=== PATIENT | female | born 1935 | race Caucasian/White ===

== ENCOUNTER → 2018-01-16 13:02 | Outpatient (CLI) | payer MEDICARE, SELFPAY ==
[2018-01-16 13:59] LABS: Absolute Lymphocyte Count 1.53 X10^3/ul (0.83-4.51); Absolute Neutrophil Count 2.9 X10^3/uL (2.0-7.7); Basophil# 0.06 X10^3/uL; Basophil% 1.2 % (0-1); Eosinophil# 0.24 X10^3/uL; Eosinophils% 4.7 % (0-5); Hematocrit 40.9 % (37-47); Hemoglobin 12.8 g/dl (12.0-15.0); Lymphocyte # 1.53 X10^3/ul (4.0); Lymphocyte % 30.2 % (19-41); Mean Corp Hgb Conc 31.3 g/gl (32-36); Mean Corpuscular Hgb 29.9 pg (27.0-32.0); Mean Corpuscular Volume 95.6 fL (81-99); Mean Platelet Vol. 10.4 fl (6.2-12.0); Monocyte# 0.38 X10^3/uL; Monocyte% 7.5 % (0-10); Neutrophil # 2.86 X10^3/uL (2.7-7.7); Neutrophil % 56.4 % (47-70); Platelet Count 297 K/mm3 (150-450); RBC Distribution Width CV 12.8 % (11.6-14.6); RBC Distribution Width SD 44.2 fl (35.1-43.9); Red Blood Count 4.28 M/mm3 (4.2-5.4); White Blood Count 5.1 K/mm3 (4.4-11.0)
[2018-01-16 14:00] LABS: POSITIVE COUNT NO; POSITIVE DIFFERENTIAL NO; POSITIVE MORPHOLOGY NO
[2018-01-16 14:13] LABS: Anion Gap 7 (5-15); BUN 15 mg/dL (7-18); BUN/Creat Ratio 13.3 RATIO (10-20); Calcium,Total 8.8 mg/dL (8.5-10.1); Chloride 106 mmol/L (98-107); Cholesterol 214 mg/dL (200); Creatinine, Serum 1.13 mg/dL (0.55-1.02); EST Glomerular Filtration Rate 49 mL/min (>60); Est Glom Filt Rate - Afr Amer 59 mL/min (>60); Glucose 94 mg/dL (74-106); High Density Lipoprotein 73 mg/dL; Potassium 3.8 mmol/L (3.5-5.1); Sodium Level 140 mmol/L (136-145); Triglycerides 104 mg/dL; Very Low Density Lipoprotein 21 mg/dL (5-40)
== END ==
PROVIDERS: Family Provider Family Medicine; PCP Family Medicine; Visit Provider Family Medicine
DX: E78.00 Pure hypercholesterolemia, unspecified (principal); R53.83 Other fatigue
CPT/HCPCS: 36415; 80048; 80061; 85025

== ENCOUNTER → 2018-01-19 14:41 | Outpatient (CLI) | payer MEDICARE, SELFPAY ==
[2018-01-19 17:54] LABS: Vitamin B12 417 pg/mL (211-911); Vitamin D,25 Hydroxy 48.5 ng/mL (29.95-100.01)
[2018-01-19 18:01] LABS: Erythrocyte Sedimentation Rate 6 mm/hr (0-30)
[2018-01-19 18:11] LABS: CPK Total, Creatine Kinase 127 U/L (26-192)
== END ==
PROVIDERS: Family Provider Family Medicine; PCP Family Medicine; Visit Provider Family Medicine
DX: M79.1 Myalgia (principal); R53.83 Other fatigue
CPT/HCPCS: 36415; 82306; 82550; 82607; 84443; 85652

== ENCOUNTER → 2018-03-06 12:57 | Outpatient (CLI) | payer MEDICARE, SELFPAY ==
[2018-03-06 13:43] LABS: Absolute Lymphocyte Count 1.52 X10^3/ul (0.83-4.51); Absolute Neutrophil Count 2.7 X10^3/uL (2.0-7.7); Basophil# 0.05 X10^3/uL; Eosinophils% 4.1 % (0-5); Hematocrit 36.8 % (37-47); Hemoglobin 11.3 g/dl (12.0-15.0); Lymphocyte # 1.52 X10^3/ul (4.0); Lymphocyte % 31.1 % (19-41); Mean Corp Hgb Conc 30.7 g/gl (32-36); Mean Corpuscular Hgb 29.9 pg (27.0-32.0); Mean Corpuscular Volume 97.4 fL (81-99); Monocyte# 0.42 X10^3/uL; Monocyte% 8.6 % (0-10); Neutrophil % 55.2 % (47-70); Platelet Count 324 K/mm3 (150-450); RBC Distribution Width CV 12.6 % (11.6-14.6); RBC Distribution Width SD 44.2 fl (35.1-43.9); Red Blood Count 3.78 M/mm3 (4.2-5.4); White Blood Count 4.9 K/mm3 (4.4-11.0)
[2018-03-06 13:44] LABS: POSITIVE COUNT NO; POSITIVE DIFFERENTIAL NO; POSITIVE MORPHOLOGY NO
[2018-03-07 10:25] LABS: Vitamin B12 384 pg/mL (211-911)
[2018-03-07 22:11] LABS: Endomysial Antibody IgA Negative (Negative)
[2018-03-08 10:45] LABS: Deamidated Gliadin IgA 1 units (0-19); Deamidated Gliadin IgG 2 units (0-19); Immunoglobulin A 310 mg/dL (64-422); t-Transglutaminase IgA <2 U/mL (0-3)
== END ==
PROVIDERS: Family Provider Family Medicine; PCP Family Medicine; Visit Provider Family Medicine
DX: R53.83 Other fatigue (principal)
CPT/HCPCS: 36415; 82533; 82607; 82784; 83516; 85025; 86255

== ENCOUNTER → 2018-05-07 12:10 | Outpatient (CLI) | payer MEDICARE, SELFPAY ==
[2018-05-07 12:56] LABS: CREATININE FINGERSTICK 0.8 mg/dL (0.55-1.02); EGFR FINGERSTICK > 60.0000 mL/min (>60)
== END ==
PROVIDERS: Family Provider Family Medicine; PCP Family Medicine; Visit Provider Family Medicine
DX: R51 Headache (principal)
CPT/HCPCS: 70553; A9585

== ENCOUNTER → 2018-05-22 15:38 | Outpatient (CLI) | payer MEDICARE, SELFPAY ==
[2018-05-22 18:14] LABS: Amphetamine Urine VISTA NEGATIVE (<1000 ng/mL); Barbiturate Urine VISTA NEGATIVE (< 200 ng/mL); Benzodiazepine Urine VISTA NEGATIVE (< 200 ng/mL); Cocaine Urine VISTA NEGATIVE (< 300 ng/mL); Ecstacy Urine VISTA NEGATIVE (< 500 ng/mL); Methadone Urine VISTA NEGATIVE (< 300 ng/mL); PCP Urine VISTA NEGATIVE (< 25 ng/mL); THC Urine VISTA NEGATIVE (< 50 ng/mL); Vista UDS pH Range 5
== END ==
PROVIDERS: Family Provider Family Medicine; PCP Family Medicine; Visit Provider Anesthesiology Pain Medicine
DX: F11.20 Opioid dependence, uncomplicated (principal)
CPT/HCPCS: 80307

== ENCOUNTER → 2019-01-01 | Outpatient (CLI) | payer MEDICARE, SELFPAY ==
[2019-01-01 16:10] LABS: Amphetamine Urine VISTA NEGATIVE (<1000 ng/mL); Barbiturate Urine VISTA NEGATIVE (< 200 ng/mL); Benzodiazepine Urine VISTA NEGATIVE (< 200 ng/mL); Cocaine Urine VISTA NEGATIVE (< 300 ng/mL); Ecstacy Urine VISTA NEGATIVE (< 500 ng/mL); Methadone Urine VISTA NEGATIVE (< 300 ng/mL); PCP Urine VISTA NEGATIVE (< 25 ng/mL); THC Urine VISTA NEGATIVE (< 50 ng/mL); Vista UDS pH Range 7
== END | disposition home or self-care (01) ==
LOC: LAB 14:28
PROVIDERS: Family Provider Family Medicine; PCP Family Medicine; Referring Provider Anesthesiology Pain Medicine; Visit Provider Anesthesiology Pain Medicine
DX: F11.20 Opioid dependence, uncomplicated (principal)
CPT/HCPCS: 80307

== ENCOUNTER → 2023-12-29 | Outpatient (CLI) | payer MEDICARE, SELFPAY ==
--- NOTE | 2023-12-29 14:34 | RAD_ITS ---
STUDY: X-RAY - ABDOMEN/PELVIS REASON FOR EXAM: Female, 88 years old. abd pain TECHNIQUE: AP supine and upright views of the abdomen and pelvis. COMPARISON: None. FINDINGS: Normal visualized lung bases. There is an unremarkable bowel gas pattern. There is no demonstrated free abdominal air. The visualized liver, spleen and kidneys are grossly normal in size and morphology. Normal soft tissue structures. Mild levoscoliosis lumbar spine with degenerative disc disease. RAD/Abd Inc Decub and/or Erect IMPRESSION: Normal x-ray examination of the abdomen and pelvis. Electronically Signed: Corbin Euceda MD at 17:31 EDT ,
[2023-12-29 18:24] LABS: CRP < 2.90 mg/L (0.0-3.0)
[2024-01-01 15:08] LABS: Endomysial Antibody IgA Negative (Negative); Immunoglobulin A 392 mg/dL (64-422); t-Transglutaminase IgA <2 U/mL (0-3)
== END | disposition home or self-care (01) ==
LOC: MTLAB 14:29
PROVIDERS: PCP Registered Nurse; Referring Provider Internal Medicine Gastroenterology; Visit Provider Internal Medicine Gastroenterology
DX: R19.7 Diarrhea, unspecified (principal); R10.9 Unspecified abdominal pain
CPT/HCPCS: 36415; 74019; 82784; 83516; 86140; 86255

== ENCOUNTER → 2025-02-11 | Outpatient (CLI) | payer MEDICARE, SELFPAY ==
--- NOTE | 2025-02-11 09:30 | PET_ITS ---
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 TECHNIQUE: Following the intravenous administration of radionucleotide, image acquisition on a dedicated PET/CT unit was performed at one hour post injection. A preliminary CT study encompassing the Skull base, neck, chest, abdomen, pelvis, and proximal thighs was performed for purposes of attenuation correction and anatomic localization. The proximal thighs were also included. The patient's blood glucose level was 98 mg/dL (allowable range: 50-180 mg/dL). RADIOPHARMACEUTICAL: 14.28 mCi 18F-FDG (Fluorodeoxyglucose F18) IV was injected into he patient. RADIATION DOSE SUMMARY: Effective Dose: Approximately 7 mSv for a standard whole-body PET scan Organ Doses: Varies by organ, with higher doses typically to the bladder, liver, and brain COMPARISON: COMPARISON FROM CT, PET OR OTHER PERTINENT EXAMS: None provided. FINDINGS: Physiologic uptake: There may be expected metabolic uptake within the brain, tongue and floor of the mouth and larynx/vocal cords, heart, car (many normal individuals have hilar uptake in less than 3 nodes with mildly avid hilar nodes less than 2.7 SUV), liver and spleen, system, and GI tract and symmetric muscle uptake. FDG AVID AND NON-AVID LESIONS. Reported avid SUV values (g/mL*) are maximum SUV. Metallic artifact from dental work is seen. NECK: Partial osseous destructive change of the left mandible is noted. SUV max is approximately 16.1. Marked abnormal uptake also extends into the left mild mouth. SUV max is approximately 21.1 Hypermetabolic activity is also seen at the subjacent left submandibular gland, with SUV max of 3.2 At the level of C3, a left cervical hypermetabolic lymph node is seen, with SUV max of 10.1 Hypermetabolic activity seen of the bilateral tongue base, with SUV max in the right of 5.5, and SUV max of the left of 5.5, as well. CHEST: Chest wall- There are no significant chest wall abnormalities. Axilla- There are no significant axillary abnormalities. Lung parenchyma- There are no significant lung parenchyma abnormalities. Mediastinum- There are no significant hilar or mediastinal adenopathy. Pleura- There are no significant pleural abnormalities. ABDOMEN: Moderate aortic calcification; no evidence of abdominal aortic aneurysm. Stomach- No significant abnormalities. Liver- No significant abnormalities. Spleen- No significant abnormalities. Pancrease- No significant abnormalities. Kidneys- No significant abnormalities. Bowel- Normal bowel activity. Spine- No significant abnormalities. PELVIS: Moderate to moderately severe sigmoid diverticulosis. Bowel- Normal physiologic bowel activity is identified. Masses- There are no pelvic masses. Bones- Prominent degenerative changes are seen throughout the spine. With the use of bone window settings, there are no osteolytic or osteoblastic lesions. There are no FDG avid lesions within the visualized portion of the axial skeleton. PET/PET/CT Tumor Base -Thigh Init IMPRESSION: FDG avid- Extensive hypermetabolic left mouth mass, including partial destruction of the left mandible, and also extending to the left submandibular gland, highly concerning for malignancy. Additionally, a hyperme tabolic left cervical lymph node is seen. Milder hypermetabolic activity of the bilateral base of the tongue is also seen . Other: 1. Moderate to moderately severe sigmoid diverticulosis. 2. Prominent degenerative changes throughout the spine. Please note the low-dose CT scan was performed to facilitate PET image reconstr uction and anatomic localization and does not replace a diagnostic CT. Any diagnostic CT requested and performed at the time of the PET will be reported separately. Reading Location: [id number]
== END | disposition home or self-care (01) ==
PROVIDERS: PCP Registered Nurse; Referring Provider Internal Medicine Hematology & Oncology; Visit Provider Internal Medicine Hematology & Oncology
DX: C76.0 Malignant neoplasm of head, face and neck (principal); R93.0 Abnormal findings on diagnostic imaging of skull and head, not elsewhere classified
CPT/HCPCS: 78815; A9552

== ENCOUNTER 2025-03-12 15:06 | Emergency (ER) | payer MEDICARE, SELFPAY ==
[2025-03-12 15:07] VITALS: BP 142/63; PULSE 57; RESP 18; TEMP 36.7; O2SAT 98; BMI 27.8
--- NOTE | 2025-03-12 15:53 | EDS_ITS ---
HPI History of Present Illness Chief Complaint: Dizziness [facility] Medical History (Updated 03/12/25 @ 15:42 by Jodee Lee) Cancer of jaw Home Medications ?Medication ?Instructions ?Recorded ?Last Taken ?Type aspirin 81 mg tablet 81 mg PO DAILY 03/12/25 07/11/05 History biotin 10,000 mcg capsule 10,000 mcg PO DAILY 03/12/25 03/12/25 History cetirizine 10 mg tablet 10 mg PO DAILY PRN allergies 03/12/25 Unknown History docusate sodium 100 mg capsule 100 mg PO DAILY PRN con stipation 03/12/25 Unknown History ergocalciferol (vitamin D2) 1,250 1,250 mcg PO .COMPLE X 03/12/25 Unknown History mcg (50,000 unit) capsule fentanyl 37.5 mcg/hour transdermal 1 patch topical Q3D 03/12/25 03/11/25 History patch latanoprost 0.005 % eye drops 1 drp EACH EYE DAILY 11/0503/12/25 History (Xalatan) multivitamin (Daily Multi-Vitamin 1 tab PO DAILY 03/1203/12/25 History tablet) oxycodone-acetaminophen 10 mg-325 1 tab PO Q8H PRN cyndy n 03/12/25 Unknown History mg tablet polyethylene glycol 3350 17 17 g PO DAILY PRN constipa tion 03/12/25 Unknown History gram/dose oral powder (ClearLax) pregabalin 150 mg capsule 150 mg PO BID 03/12/2503/12 History timolol maleate 0.5 % eye drops 1 drp ophthalmic (eye) BID 03/12/25 03/12/25 History Allergy/AdvReac Type Severity Reaction Status Date / Time diazepam (From Valium) Allergy slows me Verified 03/12/25 15:09 down Social History (Updated 12/04/17 @ 14:01 by Corky Hughes DO) Smoking Status: Former smoker EXAM Physical Exam Const Vital Signs: 03/12/25 15:07 03/12/25 17:07 03/12/25 19:00 Temperature 98.1 F Temperature Source Oral Pulse Rate 57 L 49 L 53 L Respiratory Rate 18 14 14 Blood Pressure 142/63 H 119/52 L 119/90 H Blood Pressure Mean 89 74 99 Pulse Ox 98 95 95 Oxygen Delivery Method Room Air Room Air Room Air MDM MDM MDM Narrative Medical decision making narrative: HISTORY OF PRESENT ILLNESS: Chief complaint: Dizziness, bradycardia 89-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 Per family patient was 54. She states she has been more diffusely weak, dizzy and tired. No she recently started radiati on therapy for jaw cancer. Notes she is not taking as much p.o. Denies vomiting or diarrhea. Denies increased urination. Denies chest pain or shortness of breath. Denies leg swelling. Denies fever cough or chills. Denies focal weakness, slurred speech, facial drooping, loss of vision. REVIEW OF SYSTEMS: Pertinent positives: Dizziness, low heart rate Pertinent negatives: Chest pain, shortness of breath PHYSICAL EXAM: Nursing triage notes reviewed, Vital signs reviewed Constitutional: please see [facility] HENT: MMM Eyes: Pupils equal round and reactive to light, Extraocular muscles intact Neck: No stridor, no JVD, full neck ROM Lungs: Clear to auscultation, No wheezing or rales. No increased work of breathing, no conversational dyspnea, no accessory muscle use, no nasal flaring. No respiratory distress noted Heart: Regular rate and rhythm, No murmurs, No rubs and No gallops, 2+ distal pulses (radial, femoral, posterior tibial) in all extremities Abdomen: Soft, there is no tenderness, rigidity, rebound or guarding, no obvious peritoneal signs, no palpable pulsatile abdominal masses, no auscultated abdominal bruit : No CVAT Extremities: No edema Neuro: Alert and oriented x3, neuro exam at baseline, cranial nerves II through XII are intact. No pain with extraocular muscle movement. There is negative test of skew. 5 of 5 strength in upper and lower extremities in flexion extension. Intact sensation to light touch in upper and lower extremity dermatomes. No truncal or extremity ataxia. No dysdiadochokinesia. Normal gait. 2+ reflexes in upper and lower extremities. No meningeal signs. Negative Babinski. NIH of 0. Skin: No rash or lesions noted MEDICAL DECISION MAKING: Chief Complaint: please see HPI External records reviewed: Reviewed prior imaging studies Factors affecting care: Jaw cancer currently on radiation therapy Social determinants of health: none History obtained from others: Daughter Consults: Cardiology (Dr. Vidal) [facility] Narrative: The patient was initially hemodynamically stable, heart rate initially 57, otherwise she is nontoxic-appearing saturating 98% room air breathing 18 times a minute I considered the following differential diagnosis: Heart Block, arrhythmia, anemia, electro disturbance, ACS, heart failure, ICH, intracranial mass I obtained a broad lab and imaging workup to further determine if the patient was suffering from a life-threatening etiology. ALL IMAGES (IF OBTAINED) HAVE BEEN PERSONALLY REVIEWED AND INTERPRETED BY MYSELF. Initial EKG sinus bradycardia rate 52, no sign of high degree block or dropped beats, normal IA interval (192), no obvious STEMI noted. No significant change from prior EKG noted from November 2016. At this time heart rate 59. IA interval is 192. CT scan of the brain shows no evidence of obvious mass or bleed I have personally reviewed the patient's chest x-ray. Chest x-ray is unremarkable for pulmonary edema, pneumothorax, pneumonia or focal cardiopulmonary abnormality. CBC with no leukocytosis, baseline chronic anemia, no thrombocytopenia Urinalysis shows no evidence of urinary inflammation suggestive of UTI BMP with hyper kalemia however it is hemolyzed likely normal given potassium was 5.2 the lab reference range of 3.3-5.1. Will not treat as there are no EKG changes. There is no LANG LFTs show no evidence of hepatobiliary pathology. Initial troponin indeterminate will wait for delta troponin. Delta troponin 41. (This technically rules in by sensitive troponin protocol) Lipase is wnl indicating no pancreatic inflammation. The synthesis of the patient's history, physical exam, labs images suggest no acute life or limb threating etiology. While the patient was bradycardic she had a sinus bradycardia. No sign of high degree block. Her vitals remained stable including blood pressures remained initially elevated at 142/63 and back into normal range at 119/90. Discussed the high sensitive troponins ruling in from 41-30 which is a delta of 11 which is greater than 6. Discussed with cardiology Dr. Vidal who noted the patient denied chest pain is no EKG changes suspicious for ischemia that should be appropriate for outpatient follow-up despite ruling in by high-sensitivity protocol. Patient was discharged with strict return precautions and follow-up instructions with cardiology The patient and/or family, caregivers express understanding. The patient and/or family, caregivers agrees with the plan. Shared decision making: I will have a discussion with the patient and or visitors regarding risk/benefits of further testing or admission. They will be made aware of of the risk/benefits inherent in this decision they will be given the opportunity to voice understanding. Total critical care time today provided was at least 0 minutes. This excludes separately billable procedures. Critical care time (if documented) is secondary to the patient having high probability of clinically significant/life threatening deterioration in the patient's condition which required my urgent intervention. Impression: 1. Dizziness 2. Bradycardia Dispo: Discharge home This note was generated with [employer] dictation software. It may contain incorrect words, spelling, and punctuation that were not noted in review of the chart prior to signing. Lab Data Labs: Laboratory Results - last 24 hr 03/12/25 03/12/25 03/12/25 16:12 18:26 18:38 WBC 6.9 RBC 3.46 L Hgb 10.6 L Hct 34.0 L MCV 98.3 MCH 30.6 MCHC 31.2 L RDW Std Deviation 42.5 RDW Coeff of Domi 11.8 Plt Count 217 MPV 11.5 Immature Gran % (Auto) 0.100 Neut % (Auto) 64.9 Lymph % (Auto) 19.1 [place] % (Auto) 9.1 Eos % (Auto) 6.1 H Baso % (Auto) 0.7 Absolute Neuts (auto) 4.5 Absolute Lymphs (auto) 1.32 Nucleated RBC % 0 Sodium 138 Potassium 5.2 H Chloride 103 Carbon Dioxide 27.2 Anion Gap 8 BUN 25 H Creatinine 1.29 H Estim Creat Clear Calc 24.82 L Est GFR (MDRD) Non-Af 40 L BUN/Creatinine Ratio 19.3 Glucose 95 Calcium 9.3 Total Bilirubin 0.27 AST 34 H ALT 20 Alkaline Phosphatase 99 Troponin T High Sens 40 H Troponin T Hi Sens 2 Hr 31 H Total Protein 6.5 Albumin 3.6 Globulin 2.9 Albumin/Globulin Ratio 1.2 Lipase 45 Urine Color Yellow Urine Clarity Clear Urine pH 6.0 Ur Specific [place] 1.015 Urine Protein 15 H Urine Glucose (UA) Normal Urine Ketones Negative Urine Occult Blood Negative Urine Nitrite Negative Urine Bilirubin Negative Urine Urobilinogen Normal Ur Leukocyte Esterase Negative Urine RBC 0-5 SEEN Urine WBC 0-5 SEEN Ur Squamous Epith Cells 0-5 SEEN Urine Bacteria 0 SEEN Urine Mucus 0 SEEN Radiography Diagnostic Testing: Clinical Impression(s) from Imaging Studies Brain CT 03/12/25 16:27 IMPRESSION: No acute intracranial process. Moderate chronic microvascular ischemic changes. No definite mass effect. Please note that parenchymal lesions are difficult to exclude on noncontrast CT brain; consider further evaluation with CT brain with IV contrast or MR for further evaluation. Asymmetrically dense right petrous segment of temporal bone, seen on prior MRIs, which may be anatomic or may reflect neoplastic process. Reading Location: [facility] Chest X-Ray 03/12/25 16:31 IMPRESSION: Generalized osteopenia is seen. The cardiomediastinal silhouette is within the expected range for age and rachel hnique. Although lungs are hypoinflated, no pulmonary edema is clearly identified. No focal infiltrate is seen. No pleural effusion or pneumothorax is evident. No evidence of acute cardiopulmonary disease. Reading Location: [place] [id number] Discharge Plan Triage Chief Complaint: Dizziness ED Provider: Chaim Hinds Dx/Rx/DC Orders Instructions: ED Bradycardia, ED Dizziness, Uncertain Cause Prescriptions: No Action cetirizine 10 mg tablet 10 mg PO DAILY PRN (Reason: allergies) timolol maleate 0.5 % drops 1 drp ophthalmic (eye) BID pregabalin 150 mg capsule 150 mg PO BID fentanyl 37.5 mcg/hour patch 72 hour 1 patch topical Q3D aspirin 81 mg tablet 81 mg PO DAILY biotin 10,000 mcg capsule 10,000 mcg PO DAILY ergocalciferol (vitamin D2) 1,250 mcg (50,000 unit) capsule 1,250 mcg PO .COMPLEX Rx Instructions: 1,250 mcg orally EVERY OTHER WEEK; latanoprost [Xalatan] 0.005 % drops 1 drp EACH EYE DAILY polyethylene glycol 3350 [ClearLax] 17 gram/dose powder 17 g PO DAILY PRN (Reason: constipation) multivitamin [Daily Multi-Vitamin] Tablet 1 tab PO DAILY oxycodone-acetaminophen 10-325 mg tablet 1 tab PO Q8H PRN (Reason: pain) docusate sodium 100 mg capsule 100 mg PO DAILY PRN (Reason: constipation) Primary Care Provider: Kenia Hidalgo NP Referrals: Mirlande Vidal MD [Med Staff - Active Staff] - Activity Restrictions/Additional Instructions: Thank you for trusting us with your care today! Your labs and images are reassuring. Specifically no issues intracranially. No obvious cardiovascular issues as well. Your electrolytes and blood counts were stable. Please return to the emergency department if your symptoms change or worsen. Please follow with Cardiology for further outpatient evaluation and management. Print Language: Gibraltarian
--- NOTE | 2025-03-12 15:53 | EKG12_ITS ---
Test Reason : DIZZINESS Blood Pressure : */* mmHG Vent. Rate : 52 BPM Atrial Rate : 52 BPM P-R Int : 192 ms QRS Dur : 84 ms QT Int : 430 ms P-R-T Axes : 46 -3 21 degrees QTcB Int : 399 ms Sinus bradycardia Otherwise normal ECG Confirmed by DARCY LANDON, REINALDO ([id number]), news copy editor ALAN MONGE ([id number]) on 03/13/2025 10:08:46 AM Referred By: Chaim Hinds Confirmed By: REINALDO TAVERAS MD
[2025-03-12] MEDS: 0.9% Normal Saline (500mL Bag) 500 ML 1000 ML IV (16:18)
[2025-03-12 16:19] LABS: Hematocrit 34.0 % (37-47); Hemoglobin 10.6 g/dL (12.0-15.0); Immature Granulocytes Count 0.010 X10^3/uL (0.0-0.0); Mean Corp Hgb Conc 31.2 g/dL (32-36); Mean Corpuscular Volume 98.3 fL (81-99); Mean Platelet Vol. 11.5 fl (6.2-12.0); NRBC Flagged by Analyzer 0 % (0-5); Platelet Count 217 K/mm3 (150-450); RBC Distribution Width CV 11.8 % (11.6-14.6); RBC Distribution Width SD 42.5 fl (35.1-43.9); Red Blood Count 3.46 M/mm3 (4.2-5.4); White Blood Count 6.9 K/mm3 (4.4-11.0)
--- NOTE | 2025-03-12 16:27 | CT_ITS ---
PROCEDURE: BRAIN/HEAD WITHOUT CONTRAST 03/12/2025 REASON FOR EXAM: DIZZINESS, JAW CANCER RULE OUT BRAIN METS TECHNIQUE: BRAIN/HEAD WITHOUT CONTRAST Coronal and Sagittal reconstruction series were provided. One or more dose reduction techniques were used (e.g., Automated exposure control, adjustment of the mA and/or kV according to patient size, use of iterative reconstruction technique. RADIATION DOSE SUMMARY: DLP: 796 MGycm COMPARISON: MR from 11/26/24 FINDINGS: There is no acute infarct, intracranial hemorrhage, or mass effect. There is no hydrocephalus or significant midline shift. There is moderate chronic microvascular ischemic changes and mild parenchymal volume loss. No acute, depressed calvarial fractures. Asymmetrically dense right petrous segment of temporal bone, seen on prior MRIs. No large scalp hematomas. Bilateral lens surgeries. CT/Brain/Head without Contrast IMPRESSION: No acute intracranial process. Moderate chronic microvascular ischemic changes . No definite mass effect. Please note that parenchymal lesions are difficult to exclude on noncontrast CT brain; consider further evaluation with CT brain with IV contrast or MR for further evaluation. Asymmetrically dense right petrous segment of temporal bone, seen on prior MRIs , which may be anatomic or may reflect neoplastic process. Reading Location: [id number]
--- NOTE | 2025-03-12 16:31 | RAD_ITS ---
PROCEDURE: CHEST 1 VIEW (PORTABLE) 03/12/2025 REASON FOR EXAM: DIZZINESS RULE OUT HEART FAILURE TECHNIQUE: Frontal view of the chest. COMPARISON: None provided. RAD/Chest 1 View (Portable) IMPRESSION: Generalized osteopenia is seen. The cardiomediastinal silhouette is within the expected range for age and techn ique. Although lungs are hypoinflated, no pulmonary edema is clearly identified. No focal infiltrate is seen. No pleural effusion or pneumothorax is evident. No evidence of acute cardiopulmonary disease. Reading Location: [place] [id number]
[2025-03-12 17:07] VITALS: BP 119/52; PULSE 49; RESP 14; O2SAT 95
[2025-03-12 17:20] LABS: Lipase 45 U/L (13-75); Troponin T High Sensitivity 40 ng/L (<=14)
[2025-03-12 17:27] LABS: AST(SGOT) 34 U/L (<=31); Alanine Aminotransfer ALT/SGPT 20 U/L (<=34); Albumin, Serum 3.6 g/dL (3.4-4.8); Alkaline Phosphatase 99 U/L (35-104); Anion Gap 8 (5-15); BUN 25 mg/dL (4-19); BUN/Creat Ratio 19.3 RATIO (10-20); Calcium,Total 9.3 mg/dL (7.6-11.0); Carbon Dioxide 27.2 mmol/L (21.0-32.0); Chloride 103 mmol/L (98-108); Estimated Creatinine Clearance 24.82 ml/min (50-250); Globulin 2.9 g/dL (2.2-4.2); Glucose 95 mg/dL (70-99); Potassium 5.2 mmol/L (3.3-5.1)
[2025-03-12] MEDS: 0.9% Normal Saline (500mL Bag) 500 ML 999 ML IV (17:47)
[2025-03-12 18:46] LABS: Mucous, Urine 0 SEEN /hpf (<or=2+)
[2025-03-12 19:00] VITALS: BP 119/90; PULSE 53; RESP 14; O2SAT 95
[2025-03-12 19:12] LABS: Color, Urine Yellow (Yellow); Glucose, Dipstick Normal (Normal); Ketone-Dipstick Negative (Negative); Leukocyte Esterase-Dipstick Negative /ul (Negative); Nitrite-Dipstick Negative (Negative); Occult Blood-Urine Negative /ul (Negative); Protein-Dipstick 15 mg/dl (Negative); Specific Gravity, Urine 1.015 (1.002-1.030); Urine Bilirubin Dipstick Negative (Negative)
[2025-03-12 19:35] LABS: Troponin T High Sens 2 HR 31 ng/L (<=14)
[2025-03-12 19:58] LABS: Red Blood Cells-Urine 0-5 SEEN /hpf (0-5); Squamous Epithelial Cells - UA 0-5 SEEN /hpf (5-10)
[2025-03-12 20:06] VITALS: BP 131/54; PULSE 53; RESP 14; TEMP 36.8; O2SAT 99
== END 2025-03-12 20:07 | disposition home or self-care (01) ==
PROVIDERS: Emergency Provider Emergency Medicine; PCP Registered Nurse; Referring Provider Emergency Medicine; Visit Provider Emergency Medicine
DX: R42 Dizziness and giddiness (principal); C76.0 Malignant neoplasm of head, face and neck; R00.1 Bradycardia, unspecified; Z87.891 Personal history of nicotine dependence; Z92.3 Personal history of irradiation
CPT/HCPCS: 70450; 71045; 80053; 81001; 83690; 84484; 85025; 93005; 96360; 96361; 99283; A4216

== ENCOUNTER → 2025-08-05 | Outpatient (CLI) | payer MEDICARE, SELFPAY ==
--- NOTE | 2025-08-05 08:00 | PET_ITS ---
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 TECHNIQUE: Procedure Code: [id number] Modality: PT Procedure: PET/CT TUMOR BASE -THIGH SUBS Following the intravenous administration of radionucleotide, image acquisition on a dedicated PET/CT unit was performed at one hour post injection. A preliminary CT study encompassing the Head, neck, chest, abdomen, pelvis, and proximal thighs was performed for purposes of attenuation correction and anatomic localization. The proximal thighs were also included. The patient's blood glucose level was 55 mg/dL (allowable range: 50-180 mg/dL). RADIOPHARMACEUTICAL: 11.47 mCi 18F-FDG (Fluorodeoxyglucose F18) IV was injected into he patient. RADIATION DOSE SUMMARY: Effective Dose: Approximately 7 mSv for a standard whole-body PET scan Organ Doses: Varies by organ, with higher doses typically to the bladder, liver, and brain COMPARISON: COMPARISON FROM CT, PET OR OTHER PERTINENT EXAMS: PET-CT examination of 02/12/2020. FINDINGS: Physiologic uptake: There may be expected metabolic uptake within the brain, tongue and floor of the mouth and larynx/vocal cords, heart, car (many normal individuals have hilar uptake in less than 3 nodes with mildly avid hilar nodes less than 2.7 SUV), liver and spleen, system, and GI tract and symmetric muscle uptake. FDG AVID AND NON-AVID LESIONS. Reported avid SUV values (g/mL*) are maximum SUV. Head and NECK: Interval near-complete resolution of the previous abnormal uptake in the left mouth area. Previous left cervical hypermetabolic adenopathy is no longer seen. CHEST: Paraesophageal uptake is seen, most likely due to benign process such as esophagitis or FDG secretion from the salivary glands. Chest wall- There are no significant chest wall abnormalities. Axilla- There are no significant axillary abnormalities. Lung parenchyma- There are no significant lung parenchyma abnormalities. Mediastinum- There are no significant hilar or mediastinal adenopathy. Pleura- There are no significant pleural abnormalities. ABDOMEN: Moderate arterial calcification; no evidence of abdominal aortic aneurysm. Stomach- No significant abnormalities. Liver- No significant abnormalities. Spleen- No significant abnormalities. Pancrease- No significant abnormalities. Kidneys- No significant abnormalities. Bowel- Normal bowel activity. Spine- No significant abnormalities. PELVIS: At least moderate sigmoid diverticulosis is noted. Bowel- Normal physiologic bowel activity is identified. Masses- There are no pelvic masses. Bones- Degenerative changes of the spine are again noted. With the use of bone window settings, there are no osteolytic or osteoblastic lesions. There are no FDG avid lesions within the visualized portion of the axial skeleton. PET/PET/CT Tumor Base -Thigh Subs IMPRESSION: FDG avid- 1. Interval near-complete resolution of the previous abnormal uptake in the lef t mouth area. 2. Previous left cervical hypermetabolic adenopathy is no longer seen. 3. Paraesophageal uptake is seen, most likely due to benign process such as eso phagitis or FDG secretion from the salivary glands. Other: 1. At least moderate sigmoid diverticulosis is seen. 2. Moderate arterial calcification; no evidence of abdominal aortic aneurysm. Please note the low-dose CT scan was performed to facilitate PET image reconstr uction and anatomic localization and does not replace a diagnostic CT. Any diagnostic CT requested and performed at the time of the PET will be reported separately. Reading Location: [address]
== END | disposition home or self-care (01) ==
PROVIDERS: PCP Registered Nurse; Referring Provider Internal Medicine Hematology & Oncology; Visit Provider Internal Medicine Hematology & Oncology
DX: C76.0 Malignant neoplasm of head, face and neck (principal); C77.0 Secondary and unspecified malignant neoplasm of lymph nodes of head, face and neck
CPT/HCPCS: 78815; A9552

== ENCOUNTER → 2025-08-25 | Outpatient (CLI) | payer MEDICARE, SELFPAY | END | disposition home or self-care (01) | PROVIDERS: PCP Registered Nurse; Referring Provider Otolaryngology; Visit Provider Otolaryngology | DX: B37.0 Candidal stomatitis (principal) | CPT/HCPCS: 87070; 87205 ==